=== PATIENT | male | born 1990 | race African-American/Black ===

== ENCOUNTER 2025-01-04 11:39 | Emergency (ER) | payer OTHER, SELFPAY ==
[2025-01-04 11:53] VITALS: BP 144/98; PULSE 87; RESP 16; TEMP 36.4; O2SAT 100
--- NOTE | 2025-01-04 12:43 | ED_ITS ---
HPI - Skin/Abscess/Foreign Bdy General Chief complaint: Skin/Abscess/Foreign Body Stated complaint: irritated area to back since last night Time Seen by Provider: 01/04/25 12:30 History of Present Illness HPI narrative: Patient is a 34-year-old male who presents ER with concerns for infection to left shoulder/back region. Noticed pain last night and noticed the skin was tender and using today. No fevers or chills. Does have history of eczema. There is a sq patch where the skin is sloughed off and he is more tender. No pustules. Denies using any pain patches or heating pads. No trauma to the area. Related Data Allergies Allergy/AdvReac Type Severity Reaction Status Date / Time No Known Allergies Allergy Verified 01/04/25 11:43 Review of Systems Review of Systems: All systems reviewed & are unremarkable except as noted in HPI and below Constitutional: Constitutional: Reports no additional constitutional complaints Musculoskeletal: Musculoskeletal: Reports no additional musculoskeletal complaints Integumentary/Breasts: Skin/Breast: Reports system reviewed and no additional complaints, except as docu PMFSH Past Medical History Medical History (Updated 01/04/25 @ 12:47 by Dereje Kate MD) Eczema Exam Narrative: GENERAL: Well-appearing, well-nourished, and in no acute distress. HEAD: Normocephalic, atraumatic. ENT: Mucous membranes moist. NECK: Supple. Linear excoriations the size of the neck and then posteriorly inferior to the neck at top of the back there is a 3 cm x 4 cm rectangular area weeping sensitive skin. EXTREMITIES: Normal range of motion. No edema. SKIN: Warm, dry, no rash. NEURO: Alert and oriented x3. PSYCH: Normal mood and affect. Course Course Emergency Course: Will discharge home with mupirocin and Bactrim. Vital Signs Vital signs: Vital Signs Temperature 97.6 F 01/04/25 11:53 Pulse Rate 87 01/04/25 11:53 Respiratory Rate 16 01/04/25 11:53 Blood Pressure 144/98 H 01/04/25 11:53 Pulse Oximetry 100 01/04/25 11:53 Oxygen Delivery Room Air 01/04/25 11:53 Temperature 97.6 F 01/04/25 11:53 Pulse Rate 87 01/04/25 11:53 Respiratory Rate 16 01/04/25 11:53 Blood Pressure 144/98 H 01/04/25 11:53 Pulse Oximetry 100 01/04/25 11:53 Oxygen Delivery Room Air 01/04/25 11:53 Discharge Plan Discharge Clinical Impression: Cellulitis Patient Disposition: Home Condition: Stable Instructions: Cellulitis (ED) Additional Instructions: Return ER if you have fever over 100.4? F, you cannot keep down food/water, you lose consciousness, or you have additional concerns Patient Language: [place]ish Prescriptions: New mupirocin 2 % ointment kit 1 applic topical TID Qty: 1 0RF sulfamethoxazole-trimethoprim [Bactrim DS] 800-160 mg tablet 1 tablet PO Q12H Qty: 20 0RF Follow-up/Referrals: Jarad Anton MD [Physician, Family Practice] - 1 Week
[2025-01-04 13:38] VITALS: BP 141/99; PULSE 65; RESP 14; O2SAT 100
== END 2025-01-04 13:39 | disposition home or self-care (01) ==
PROVIDERS: Emergency Provider Emergency Medicine
DX: L03.221 Cellulitis of neck (principal)
CPT/HCPCS: 99283